=== PATIENT | male | born 1955 | race Caucasian/White ===

== ENCOUNTER 2018-11-29 08:15 | Outpatient (REF) | payer MEDICARE, MEDICAID, SELFPAY ==
[2018-11-29 14:27] LABS: Abs Immature Grans 0.05 k/cumm (0.0-0.09); Absolute Basophil Count 0.14 k/cumm (0.0-0.2); Absolute Eosinophil Count 0.24 k/cumm (0.0-0.7); Absolute Lymphocyte Count 2.73 k/cumm (1.2-3.4); Absolute Monocyte Count 0.87 k/cumm (0.11-0.7); Absolute Neutrophil Count 6.57 k/cumm (1.2-6.7); Basophils % 1.3; Eosinophils % 2.3; HCT 48.1 % (40.0-50.0); HGB 15.8 g/dL (13.5-17.5); Immature Grans % 0.5; Lymphocytes % 25.8; Mean Corp. HGB Concentration 32.8 g/dL (32.0-36.0); Mean Corpuscular Hemoglobin 29.8 pg (27.0-33.0); Mean Corpuscular Volume 90.6 fL (80-95); Mean Platelet Volume 10.7 fL (8.0-11.0); Monocytes % 8.2; Neutrophils % 61.9; Platelet Count 383 x1000/uL (130-400); RBC 5.31 m/cumm (4.50-6.00); RBC Distribution Width 13.2 % (11.8-14.1)
[2018-11-29 15:02] LABS: ALT 52 U/L (12-78); AST 33 U/L (15-37); Albumin 4.1 g/dL (3.4-5.0); Alkaline Phosphatase 66 U/L (46-116); Anion Gap 7.8 mmol/L (3-11); BUN 13 mg/dL (7-18); Bilirubin, Total 0.6 mg/dL (0.2-1.0); CO2 31.2 mmol/L (21.0-32.0); CREATININE 0.97 mg/dL (0.70-1.30); Calcium 9.8 mg/dL (8.5-10.1); Chloride 104 mmol/L (98-107); Cholesterol 192 mg/dL (50-200); Glucose 99 mg/dL (70-100); HDL Cholesterol 52 mg/dL (40-60); LDL CHOLESTEROL 124 mg/dL (<100); Potassium 5.1 mmol/L (3.5-5.1); Sodium 143 mmol/L (136-145); TSH (W/Ref FT4) 1.64 uIU/mL (0.358-3.74); Total Protein 7.9 g/dL (6.4-8.2); Triglyceride 78 mg/dL (30-150)
[2018-11-30 10:32] LABS: Hepatitis C Ab w Rflx HCV PCR Reactive (NEGAT)
[2018-11-30 13:18] LABS: Hepatitis B Surface Ag Negative (NEGAT)
[2018-11-30 13:22] LABS: HBs Antibody, Quant <3.1 mIU/mL; Hepatitis B Surface Ab Negative
[2018-11-30 13:26] LABS: HIV-1/2 Ag & Ab Screen Negative (NEGAT)
[2018-11-30 15:28] LABS: Hepatitis A IgM Ab Negative (Negative)
== END 2018-11-29 08:35 ==
LOC: NCHCN 08:15
PROVIDERS: Visit Provider Nurse Practitioner Family
DX: Z13.6 Encounter for screening for cardiovascular disorders (principal); Z13.0 Encounter for screening for diseases of the blood and blood-forming organs and certain disorders involving the immune mechanism; Z13.29 Encounter for screening for other suspected endocrine disorder; Z13.228 Encounter for screening for other metabolic disorders; Z11.59 Encounter for screening for other viral diseases; Z11.4 Encounter for screening for human immunodeficiency virus [HIV]; R63.5 Abnormal weight gain
CPT/HCPCS: 80053; 80061; 83721; 86706; 86803; 87340; 87389; 84443; 85025; 86709; 87522

== ENCOUNTER 2018-12-24 07:45 | Outpatient (CLI) | payer MEDICARE, MEDICAID, SELFPAY ==
[2018-12-25 11:36] LABS: Hep A Total Ab w Rflx IgM Negative (NEGAT)
[2018-12-25 19:30] LABS: HCV Genotype 3 (Undetected)
[2018-12-26 09:46] LABS: ALT 35 U/L (7-55); ActiTest Grade A0-A1; ActiTest Interpretation no activity; ActiTest Score 0.22; Alpha-2-Macroglobulin 315 mg/dL (100 - 280); Apoliprotein A1 135 mg/dL (>=120); Bilirubin, Total 0.3 mg/dL (<=1.2); FibroTest Interpretation minimal fibrosis; FibroTest Score 0.45; FibroTest Stage F1-F2; GGT 48 U/L (8 - 61); Haptoglobin 166 mg/dL (30 - 200)
== END 2018-12-24 08:05 ==
PROVIDERS: PCP Family Medicine; Visit Provider Nurse Practitioner Family
DX: B18.2 Chronic viral hepatitis C (principal)
CPT/HCPCS: 36415; 82172; 82247; 82977; 83010; 83883; 84460; 86709; 86704; 87521; 87522

== ENCOUNTER 2019-02-19 15:27 | Outpatient (REF) | payer MEDICARE, MEDICAID, SELFPAY ==
[2019-02-19 21:58] LABS: HCT 49.5 % (40.0-50.0); HGB 16.1 g/dL (13.5-17.5); Mean Corp. HGB Concentration 32.5 g/dL (32.0-36.0); Mean Corpuscular Hemoglobin 29.5 pg (27.0-33.0); Mean Corpuscular Volume 90.7 fL (80-95); Mean Platelet Volume 10.8 fL (8.0-11.0); Platelet Count 330 x1000/uL (130-400); RBC 5.46 m/cumm (4.50-6.00); RBC Distribution Width 13.1 % (11.8-14.1); White Blood Cell Count 10.07 k/cumm (4.4-10.8)
[2019-02-19 22:04] LABS: ALT 26 U/L (12-78); AST 24 U/L (15-37); Albumin 4.3 g/dL (3.4-5.0); Alkaline Phosphatase 76 U/L (46-116); Anion Gap 9.6 mmol/L (3-11); BUN 14 mg/dL (7-18); Bilirubin, Total 0.6 mg/dL (0.2-1.0); CO2 30.4 mmol/L (21.0-32.0); CREATININE 0.85 mg/dL (0.70-1.30); Calcium 9.7 mg/dL (8.5-10.1); Chloride 102 mmol/L (98-107); Glucose 90 mg/dL (70-100); Potassium 4.6 mmol/L (3.5-5.1); Sodium 142 mmol/L (136-145)
[2019-02-21 14:36] LABS: HCV RNA Detection Quantitative Undetected IU/mL (UNDECT)
== END 2019-02-19 15:47 ==
LOC: NCHCN 15:27
PROVIDERS: PCP Family Medicine; Visit Provider Family Medicine
DX: B18.2 Chronic viral hepatitis C (principal)
CPT/HCPCS: 80053; 85027; 87522

== ENCOUNTER 2019-04-18 09:44 | Outpatient (REF) | payer MEDICARE, MEDICAID, SELFPAY ==
[2019-04-18 21:31] LABS: ALT 21 U/L (12-78); AST 31 U/L (15-37); Alkaline Phosphatase 84 U/L (46-116); Anion Gap 13.1 mmol/L (3-11); BUN 10 mg/dL (7-18); Bilirubin, Total 0.3 mg/dL (0.2-1.0); CO2 25.9 mmol/L (21.0-32.0); Calcium 9.7 mg/dL (8.5-10.1); Chloride 101 mmol/L (98-107); Glucose 88 mg/dL (70-100); Sodium 140 mmol/L (136-145); Total Protein 8.1 g/dL (6.4-8.2)
[2019-04-18 22:23] LABS: Albumin 4.2 g/dL (3.4-5.0)
[2019-04-22 14:36] LABS: HCV RNA Detection Quantitative Undetected IU/mL (UNDECT)
== END 2019-04-18 10:04 ==
LOC: NCHCN 09:44
PROVIDERS: PCP Family Medicine; Visit Provider Family Medicine
DX: B18.2 Chronic viral hepatitis C (principal); I10 Essential (primary) hypertension
CPT/HCPCS: 80053; 87522

== ENCOUNTER 2019-06-19 10:48 | Outpatient (REF) | payer MEDICARE, MEDICAID, SELFPAY ==
[2019-06-19 13:32] LABS: HCT 46.8 % (40.0-50.0); HGB 15.5 g/dL (13.5-17.5); Mean Corp. HGB Concentration 33.1 g/dL (32.0-36.0); Mean Corpuscular Hemoglobin 29.9 pg (27.0-33.0); Mean Corpuscular Volume 90.2 fL (80-95); Mean Platelet Volume 10.3 fL (8.0-11.0); Platelet Count 340 x1000/uL (130-400); RBC 5.19 m/cumm (4.50-6.00); White Blood Cell Count 9.84 k/cumm (4.4-10.8)
[2019-06-19 13:46] LABS: ALT 24 U/L (12-78); AST 22 U/L (15-37); Alkaline Phosphatase 72 U/L (46-116); Anion Gap 9.5 mmol/L (3-11); BUN 11 mg/dL (7-18); Bilirubin, Total 0.3 mg/dL (0.2-1.0); CO2 27.5 mmol/L (21.0-32.0); CREATININE 0.81 mg/dL (0.70-1.30); Chloride 103 mmol/L (98-107); Glucose 84 mg/dL (70-100); Potassium 4.4 mmol/L (3.5-5.1); Sodium 140 mmol/L (136-145); Total Protein 7.7 g/dL (6.4-8.2)
[2019-06-19 14:15] LABS: Calcium 9.3 mg/dL (8.5-10.1)
[2019-06-21 08:16] LABS: HCV RNA Detection Quantitative Undetected IU/mL (UNDECT)
== END 2019-06-19 11:08 ==
LOC: NCHCN 10:48
PROVIDERS: PCP Family Medicine; Visit Provider Family Medicine
DX: B18.2 Chronic viral hepatitis C (principal)
CPT/HCPCS: 80053; 85027; 86803; 87522

== ENCOUNTER 2020-01-21 10:53 | Outpatient (REF) | payer MEDICARE, MEDICAID, SELFPAY ==
[2020-01-21 19:04] LABS: Calculated LDL 104 mg/dL (<100); Cholesterol 170 mg/dL (<200); HDL Cholesterol 53 mg/dL (40-60); Triglyceride 66 mg/dL (<150)
[2020-01-21 19:07] LABS: PROTEIN 15.7 mg/dL
[2020-01-21 19:11] LABS: COMMENT (LAB VIEW ONLY) 105.35 mg/dL; Microalb ug/mg Crea 13.3 ug/mg Cr
[2020-01-21 19:22] LABS: COMMENT (LAB VIEW ONLY) 105.53 mg/dL; Prot/Crea Ur Ratio 0.14
== END 2020-01-21 11:13 ==
LOC: NCHCN 10:53
PROVIDERS: PCP Family Medicine; Visit Provider Nurse Practitioner Family
DX: E78.5 Hyperlipidemia, unspecified (principal)
CPT/HCPCS: 80061; 82043; 82565; 82570; 84156

== ENCOUNTER 2020-07-20 11:00 | Outpatient (REF) | payer MEDICARE, MEDICAID, SELFPAY ==
[2020-07-20 18:54] LABS: ALT 30 U/L (16-63); AST 25 U/L (15-37); Albumin 4.3 g/dL (3.4-5.0); Alkaline Phosphatase 65 U/L (46-116); Anion Gap 7.2 mmol/L (3-11); BUN 15 mg/dL (7-18); Bilirubin, Total 0.4 mg/dL (0.2-1.0); CO2 28.8 mmol/L (21.0-32.0); CREATININE 0.85 mg/dL (0.70-1.30); Calcium 9.5 mg/dL (8.5-10.1); Calculated LDL 84 mg/dL (<100); Chloride 105 mmol/L (98-107); Cholesterol 148 mg/dL (<200); Glucose 100 mg/dL (74-106); HDL Cholesterol 51 mg/dL (40-60); Potassium 4.7 mmol/L (3.5-5.1); Sodium 141 mmol/L (136-145); Total Protein 7.8 g/dL (6.4-8.2); Triglyceride 68 mg/dL (<150)
== END 2020-07-20 11:20 ==
LOC: NCHCN 11:00
PROVIDERS: PCP Family Medicine; Visit Provider Nurse Practitioner Family
DX: E78.5 Hyperlipidemia, unspecified (principal); I10 Essential (primary) hypertension
CPT/HCPCS: 80053; 80061

== ENCOUNTER 2021-10-01 16:12 | Outpatient (REF) | payer MEDICARE, MEDICAID, SELFPAY ==
[2021-10-01 19:40] LABS: ALT 30 U/L (16-63); AST 21 U/L (15-37); Albumin 4.3 g/dL (3.4-5.0); Alkaline Phosphatase 70 U/L (46-116); Anion Gap 10.7 mmol/L (3-11); BUN 10 mg/dL (7-18); Bilirubin, Total 0.4 mg/dL (0.2-1.0); CO2 29.3 mmol/L (21.0-32.0); CREATININE 0.9 mg/dL (0.70-1.30); Calcium 9.5 mg/dL (8.5-10.1); Calculated LDL 86 mg/dL (<100); Chloride 102 mmol/L (98-107); Cholesterol 157 mg/dL (<200); Glucose 95 mg/dL (74-106); HDL Cholesterol 53 mg/dL (40-60); Sodium 142 mmol/L (136-145); Total Protein 7.7 g/dL (6.4-8.2); Triglyceride 91 mg/dL (<150)
[2021-10-04 09:39] LABS: PSA, Screening 1.1 ng/mL (0.0-4.5)
== END 2021-10-01 16:13 | disposition home or self-care (01) ==
LOC: NCHCN 16:12
PROVIDERS: PCP Family Medicine; Visit Provider Physician Assistant
DX: E78.5 Hyperlipidemia, unspecified (principal); I10 Essential (primary) hypertension; Z12.5 Encounter for screening for malignant neoplasm of prostate
CPT/HCPCS: 80053; 80061; 84153; 82607

== ENCOUNTER 2022-09-27 14:55 | Outpatient (REF) | payer MEDICARE, MEDICAID, SELFPAY ==
[2022-09-27 16:01] LABS: Anion Gap 9.3 mmol/L (3-11); BUN 15 mg/dL (7-18); CO2 27.7 mmol/L (21.0-32.0); CREATININE 0.9 mg/dL (0.70-1.30); Calcium 9.6 mg/dL (8.5-10.1); Calculated LDL 177 mg/dL (<100); Chloride 103 mmol/L (98-107); Cholesterol 248 mg/dL (<200); Estimated GFR 94.19 (mL/min/1.73m2); Glucose 92 mg/dL (74-106); HDL Cholesterol 56 mg/dL (40-60); Sodium 140 mmol/L (136-145); Triglyceride 76 mg/dL (<150)
[2022-09-28 18:06] LABS: PSA, Screening 1.4 ng/mL (<=4.5)
== END 2022-09-27 14:56 | disposition home or self-care (01) ==
LOC: NCHCN 14:55
PROVIDERS: PCP Family Medicine; Visit Provider Physician Assistant
DX: E78.5 Hyperlipidemia, unspecified (principal); Z12.5 Encounter for screening for malignant neoplasm of prostate
CPT/HCPCS: 80048; 80061; 84153

== ENCOUNTER 2023-09-27 21:32 | Outpatient (REF) | payer OTHER, MEDICAID, SELFPAY ==
[2023-09-27 18:31] LABS: ALT 46 U/L (16-63); AST 29 U/L (15-37); Albumin 4.3 g/dL (3.4-5.0); Alkaline Phosphatase 84 U/L (46-116); Anion Gap 11.6 mmol/L (3-11); BUN 20 mg/dL (7-18); Bilirubin, Total 0.3 mg/dL (0.2-1.0); CO2 25.4 mmol/L (21.0-32.0); CREATININE 0.9 mg/dL (0.70-1.30); Calcium 9.7 mg/dL (8.5-10.1); Calculated LDL 70 mg/dL (<100); Chloride 101 mmol/L (98-107); Cholesterol 138 mg/dL (<200); Estimated GFR 93.61 (mL/min/1.73m2); Glucose 99 mg/dL (74-106); HDL Cholesterol 56 mg/dL (40-60); Potassium 4.2 mmol/L (3.5-5.1); Sodium 138 mmol/L (136-145); Total Protein 7.9 g/dL (6.4-8.2); Triglyceride 61 mg/dL (<150)
[2023-09-28 18:26] LABS: PSA, Screening 1.3 ng/mL (<=4.5)
== END 2023-09-27 21:33 | disposition home or self-care (01) ==
LOC: NCHCN 21:32
PROVIDERS: PCP Family Medicine; Visit Provider Physician Assistant
DX: I10 Essential (primary) hypertension (principal); Z12.5 Encounter for screening for malignant neoplasm of prostate
CPT/HCPCS: 80053; 80061; 84153

== ENCOUNTER 2024-10-09 14:35 | Outpatient (REF) | payer OTHER, MEDICAID, SELFPAY ==
[2024-10-09 19:09] LABS: ALT 41 U/L (16-63); AST 26 U/L (15-37); Albumin 4.1 g/dL (3.4-5.0); Alkaline Phosphatase 88 U/L (46-116); Anion Gap 9.4 mmol/L (3-11); BUN 17 mg/dL (7-18); Bilirubin, Total 0.35 mg/dL (0.2-1.0); CO2 27.6 mmol/L (21.0-32.0); CREATININE 0.9 mg/dL (0.70-1.30); Calcium 9.4 mg/dL (8.5-10.1); Calculated LDL 72 mg/dL (<100); Chloride 104 mmol/L (98-107); Cholesterol 144 mg/dL (<200); Estimated GFR 93.03 (mL/min/1.73m2); Glucose 87 mg/dL (74-106); HDL Cholesterol 63 mg/dL (40-60); Potassium 4.3 mmol/L (3.5-5.1); Sodium 141 mmol/L (136-145); Total Protein 7.9 g/dL (6.4-8.2); Triglyceride 45 mg/dL (<150)
== END 2024-10-09 14:36 | disposition home or self-care (01) ==
LOC: NCHCN 14:35
PROVIDERS: PCP Family Medicine; Visit Provider Physician Assistant
DX: E78.5 Hyperlipidemia, unspecified (principal)
CPT/HCPCS: 80053; 80061

== ENCOUNTER 2024-12-12 13:43 | Outpatient (CLI) | payer MEDICARE, MEDICAID, SELFPAY ==
--- NOTE | 2024-12-12 | DI.US_ITS ---
Exam(s) US LOWER EXTREMITY VENOUS RT EXAM: US LOWER EXTREMITY VENOUS RT CLINICAL HISTORY: Phlebitis and thrombophlebitis, I80.9, ? DVT. TECHNIQUE: Lower extremity venous ultrasound performed using grayscale, color-flow, and spectral Do ppler analysis. COMPARISON: No exams were available for comparison FINDINGS: The common femoral, femoral and popliteal veins demonstrate normal compressibility, augmentation, and color Doppler. The posterior tibial veins are patent. There is nonocclusive thrombus in 1 of the peroneal veins ext ending over a length of approximately 11 cm. The saphenous vein shows thrombosis beginning at the saphenofemoral junction through the the distal c vineet region, proximally 40 cm in length. No hematoma or Mcclelland's cyst is seen. IMPRESSION: Saphenous vein thrombosis. Partially occlusive thrombus in 1 of the peroneal veins. DATA REPOSITORY:
== END 2024-12-12 14:03 ==
LOC: DI 13:45
PROVIDERS: PCP Family Medicine; Visit Provider Physician Assistant
DX: I80.01 Phlebitis and thrombophlebitis of superficial vessels of right lower extremity (principal)
CPT/HCPCS: 93971

== ENCOUNTER 2025-04-01 00:44 | Outpatient (CLI) | payer MEDICARE, MEDICAID, SELFPAY ==
--- NOTE | 2025-04-01 | DI.US_ITS ---
Exam(s) US LOWER EXTREMITY VENOUS RT EXAM: US LOWER EXTREMITY VENOUS RT CLINICAL HISTORY: F/U ACUTE DVT,I82.451 TECHNIQUE: Grayscale, color, and doppler imaging of the deep venous system of the lower extremity w as performed. COMPARISON: US US LOWER EXTREMITY VENOUS RT from 12/12/2024 FINDINGS: There is again no evidence of intraluminal thrombus within the common femoral, femoral, and popliteal veins and the posterior tibial veins are again noted be patent. There is again noted intraluminal thrombus in 1 of the right calf peroneal veins extending over lengt h of 12 cm length, similar to previous. There is also thrombus evident in a branch off the greater saphenous vein extending from the mid righ t thigh down to the mid right calf, approximately 17-18 cm length and not approaching the saphenofemo ral junction at this time. This has decreased in size from previous IMPRESSION: 1. Persistent DVT in right calf peroneal vein without significant improvement compared to prior ultr asound examination of 12/12/2024 2. The ipsilateral saphenous vein thrombosis is again noted but appears somewhat less extensive than previous. DATA REPOSITORY:
== END 2025-04-01 01:04 ==
PROVIDERS: PCP Physician Assistant; Visit Provider Physician Assistant
DX: I82.451 Acute embolism and thrombosis of right peroneal vein (principal)
CPT/HCPCS: 93971

== ENCOUNTER 2025-07-15 13:42 | Outpatient (CLI) | payer MEDICARE, MEDICAID, SELFPAY ==
--- NOTE | 2025-07-15 | DI.US_ITS ---
Exam(s) US LOWER EXTREMITY VENOUS RT EXAM: US LOWER EXTREMITY VENOUS RT CLINICAL HISTORY: EDEMA RT LOWER EXTREMITY,R60.0,PERSISTENT DVT ON 04/20 TECHNIQUE: Grayscale, color, and doppler imaging of the deep venous system of the lower extremity was performed. COMPARISON: US US LOWER EXTREMITY VENOUS RT from 04/01/2025 FINDINGS: There is again no evidence of intraluminal thrombus and there is normal compression and augmentation demonstrated within the common femoral vein, femoral vein, and popliteal vein. There is presently no evidence of intraluminal thrombus in the peroneal vein of the right calf, as was evident previously. There is again noted persistent superficial vein thrombosis in a branch of the greater saphenous vein extending from the mid thigh to the knee level, approximately 18 cm in length, similar to previous. There is no evidence of thrombus within the greater saphenous vein itself nor in the region of the s aphenofemoral junction. IMPRESSION: There has been further improvement when compared to the most recent ultrasound exam of 04/01/2025. The previously present thrombus within the peroneal vein in the calf has resolved. Therefore there is no evidence of remaining DVT. However, there is still intraluminal clot (18 cm length) within a superficial greater saphenous vein branch extending from the mid thigh to the knee level. There is no evidence of thrombus within the actual greater saphenous vein itself. DATA REPOSITORY:
== END 2025-07-15 14:02 ==
LOC: DI 13:47
PROVIDERS: PCP Physician Assistant; Visit Provider Physician Assistant
DX: R60.0 Localized edema (principal)
CPT/HCPCS: 93971

== ENCOUNTER → 2025-11-21 00:08 | Outpatient (CLI) | payer MEDICARE, MEDICAID, SELFPAY ==
--- NOTE | 2025-11-21 | DI.US_ITS ---
Exam(s) US AAA SCREENING EXAM: US AAA SCREENING CLINICAL HISTORY: VASCULAR DISORDER, I99.9, SCREENING AAA, DISTANT HX SMOKING COMPARISON: US US LOWER EXTREMITY VENOUS RT from 07/15/2025 FINDINGS: There is no evidence of abdominal aortic aneurysm. Maximum diameter of the aorta is 2 cm proximally and the aorta exhibits normal distal tapering. The common iliac arteries also exhibit normal diameters. IMPRESSION: No evidence of abdominal aortic aneurysm. DATA REPOSITORY:
== END ==
PROVIDERS: PCP Physician Assistant; Visit Provider Physician Assistant
DX: I99.9 Unspecified disorder of circulatory system (principal)
CPT/HCPCS: 76706